=== PATIENT | female | born 1990 | race African-American/Black ===

== ENCOUNTER 2018-04-23 18:46 | Emergency (ER) | payer OTHER ==
[2018-04-23 21:10] LABS: APPEARANCE,URINE CLEAR; BILIRUBIN,URINE NEGATIVE (NEGATIVE); COLOR,URINE YELLOW; GLUCOSE, URINE NEGATIVE (NEGATIVE); KETONES,URINE 80 mg/dL (NEGATIVE); LEUKOCYTE ESTERASE,URINE NEGATIVE (NEGATIVE); NITRITE,URINE NEGATIVE (NEGATIVE); PROTEIN,URINE NEGATIVE (NEGATIVE); URINE SPECIFIC GRAVITY 1.016; UROBILINOGEN,URINE NEGATIVE mg/dL (<2.0)
[2018-04-23 21:13] LABS: HEMATOCRIT 42.8 % (36.0-47.0); HEMOGLOBIN 14.5 g/dL (12.0-15.5); MEAN CORPUSCULAR HEMOGLOBIN 28.4 pg (27.0-33.4); MEAN CORPUSCULAR HGB CONC 33.8 g/dL (32.0-36.0); MEAN CORPUSCULAR VOLUME 84 fl (80-97); RED CELL DISTRIBUTION WIDTH 13.6 % (11.5-14.0)
[2018-04-23 21:29] LABS: ABSOLUTE LYMPHOCYTES# (MANUAL) 2.8 10^3/uL (0.5-4.7); ABSOLUTE MONOCYTES # (MANUAL) 0.9 10^3/uL (0.1-1.4); ABSOLUTE NEUTROPHILS# (MANUAL) 7.3 10^3/uL (1.7-8.2); BASOPHILS % (MANUAL) 0 % (0-2); EOSINOPHILS % (MANUAL) 1 % (0-6); LYMPHOCYTES % (MANUAL) 25 % (13-45); MONOCYTES % (MANUAL) 8 % (3-13); SEGMENTED NEUTROPHILS % (MAN) 66 % (42-78); TOTAL CELLS COUNTED 100
[2018-04-23 21:30] LABS: PLATELET COMMENT ADEQUATE; PLATELET COUNT 150 10^3/uL (150-450); TOXIC GRANULATION SLIGHT
--- NOTE | 2018-04-23 22:05 | ER Document Report ---
ED Medical Screen (RME) - General Chief Complaint: Abdominal Pain Stated Complaint: ABDOMINAL PAIN Time Seen by Provider: 04/23/18 21:59 Primary Care Provider: BRAYDON NAVA MD [ACTIVE STAFF] - Follow up as needed Notes: Patient is a 27-year-old female who presents emergency department with a chief complaint of abdominal pain. She states that her pain started this weekend. She was seen by [facility] and they told her that she was and started her on Flagyl. She describes her pain as a sharp pain that is in her pelvic region. Exam: Mildly tender abdomen. I have greeted and performed a rapid initial assessment of this patient. A comprehensive ED assessment and evaluation of the patient, analysis of test results and completion of medical decision making process will be conducted by an additional ED providers. TRAVEL OUTSIDE OF THE [place] IN LAST 30 DAYS: No - Related Data Allergies/Adverse Reactions: vancomycin [Vancomycin] Allergy (Verified 03/02/14 19:48) Past Medical History - Immunizations Hx Diphtheria, Pertussis, Tetanus Vaccination: Yes Physical Exam - Vital signs Vitals: Temp Pulse Resp BP Pulse Ox 99.5 F 93 16 130/64 H 100 04/23/18 19:00 04/23/18 19:00 04/23/18 19:00 04/23/18 19:00 04/23/18 19:00 - Abdominal Tenderness: Tender Course - Vital Signs Vital signs: Temp Pulse Resp BP Pulse Ox 98.8 F 71 16 105/61 100 04/24/18 01:52 04/24/18 01:52 04/24/18 01:52 04/24/18 01:52 04/24/18 01:52 - Laboratory Result Diagrams: 04/23/18 20:48 04/23/18 22:13 Laboratory results interpreted by me: 04/23/18 04/23/18 04/23/18 20:48 20:48 22:13 WBC 11.0 H Beta HCG, Quant 9140.30 H Urine Ketones 80 H Doctor's Discharge - Discharge Clinical Impression: Abdominal pain affecting Condition: Good Disposition: HOME, SELF-CARE Instructions: Pelvic Pain in ([facility]) Additional Instructions: You have been evaluated in the Emergency Department for abdominal pain related to being . An ultrasound showed that you are approximately 5 weeks and 5 days along without any obvious problems. Lab work and urinalysis were also encouraging. You have decided to take misoprostol and follow-up with CORPORATE MANAGER within the next week. Please follow-up with your physician as instructed in 1 week. Return to the Emergency Department if you experience worsening pain, worsening bleeding, high fevers, or any other concerning symptoms. Prescriptions: Ondansetron [Zofran Odt 4 mg Tablet] 1 - 2 tab PO Q6H PRN #30 tab.rapdis PRN Reason: For Nausea/Vomiting Referrals: BRAYDON NAVA MD [ACTIVE STAFF] - Follow up as needed Print Language: Bermudian
[2018-04-23 22:37] LABS: ALANINE AMINOTRANSFERASE 28 U/L (9-52); ALBUMIN 4.6 g/dL (3.5-5.0); ALKALINE PHOSPHATASE 64 U/L (38-126); ANION GAP 12 (5-19); ASPARTATE AMINO TRANSFERASE 19 U/L (14-36); BILIRUBIN,DIRECT 0.1 mg/dL (0.0-0.4); BILIRUBIN,TOTAL 0.4 mg/dL (0.2-1.3); BLOOD UREA NITROGEN 10 mg/dL (7-20); CALCIUM 10.2 mg/dL (8.4-10.2); CARBON DIOXIDE 22 mmol/L (22-30); CHLORIDE 105 mmol/L (98-107); GLUCOSE 92 mg/dL (75-110); LIPASE 94.8 U/L (23-300); POTASSIUM 4.1 mmol/L (3.6-5.0); TOTAL PROTEIN 7.5 g/dL (6.3-8.2)
--- NOTE | 2018-04-23 23:31 | ER Document Report ---
ED GI/ - General Chief Complaint: Abdominal Pain Stated Complaint: ABDOMINAL PAIN Time Seen by Provider: 04/23/18 21:59 Primary Care Provider: BRAYDON NAVA MD [ACTIVE STAFF] - Follow up as needed Mode of Arrival: Ambulatory Information source: Patient Notes: HISTORY OF PRESENT ILLNESS: Patient is a 27-year-old female with no significant past medical history who presents with abdominal pain. Patient reports taking plan B "toward the end of February" but then reported having a period "the next week." She denies vaginal bleeding or discharge. Location: Abdominal Onset: Sudden Provocation: Movement, sitting Quality: "Cramping" Radiation: None Severity: Moderate Timing: Intermittent Injury: None known REVIEW OF SYSTEMS: CONSTITUTIONAL : Denies fever or chills, no sweats. Denies recent illness. EENT: Denies eye, ear, throat, or mouth pain or symptoms. Denies nasal or sinus congestion. CARDIOVASCULAR: Denies chest pain. RESPIRATORY: Denies cough, cold, or chest congestion. Denies shortness of breath, difficulty breathing, or wheezing. GASTROINTESTINAL: Positive for lower abdominal pain. Denies nausea, vomiting, or diarrhea. Denies constipation. GENITOURINARY: Denies difficulty urinating, painful urination, burning, frequenc y, or blood in urine. Denies vaginal bleeding, abnormal or irregular periods. MUSCULOSKELETAL: Denies neck or back pain or joint pain or swelling. SKIN: Denies rash or skin lesions. HEMATOLOGIC : Denies easy bruising or bleeding. LYMPHATIC: Denies swollen, enlarged glands. NEUROLOGICAL: Denies altered mental status or loss of consciousness. Denies headache. Denies weakness or paralysis or loss of use of either side. Denies problems with gait or speech. Denies sensory or motor loss. PSYCHIATRIC: Denies anxiety or stress or depression. All other systems reviewed and negative. PHYSICAL EXAMINATION: GENERAL: Well-appearing, well-nourished and in no acute distress. HEAD: Atraumatic, normocephalic. No scalp deformity, depression, or crepitance. EYES: Pupils are 3 mm and equal/round/reactive to light, extraocular movements intact, sclera anicteric, conjunctiva are normal. ENT: Nares patent bilaterally, oropharynx clear without exudates or palatal petechia. Moist mucous membranes. No tonsil hypertrophy. NECK: Normal range of motion, supple without lymphadenopathy. LUNGS: Breath sounds present, equal, and clear to auscultation bilaterally. No wheezes, rales, or rhonchi. HEART: Regular rate and rhythm without murmurs, rubs, or gallops. 2+ peripheral pulses. Normal capillary refill. ABDOMEN: Soft, nontender, nondistended. Normoactive bowel sounds. No guarding, no rebound. No masses appreciated. BACK: Normal contour, no midline tenderness. Rectal exam deferred. PELVC: Deferred. EXTREMITIES: Normal range of motion, no pitting or edema. No cyanosis. NEUROLOGICAL: No focal neurological deficits. Moves all extremities spontaneously and on command. PSYCH: Normal mood, normal affect. No suicidal thoughts/ideations. No homocidal thoughts/ideations. No hallucinations. SKIN: Warm, dry, normal turgor, no rashes or lesions noted. ASSESSMENT AND PLAN: This patient is a 27-year-old female who presents with lower abdominal pain in the setting of recent which could represent normal pain and but also threatened . 1. Will obtain labs, urinalysis, quantitative hCG, and pelvic ultrasound. 2. Will consult SYSTEMS ANALYST ENGINEER depending on results of workup. TRAVEL OUTSIDE OF THE [place] IN LAST 30 DAYS: No - Related Data Allergies/Adverse Reactions: vancomycin [Vancomycin] Allergy (Verified 03/02/14 19:48) Past Medical History - General Information source: Patient - Social History Smoking Status: Never Smoker Chew tobacco use (# tins/day): No Frequency of alcohol use: None Drug Abuse: None Lives with: Family Family History: Reviewed & Not Pertinent Patient has suicidal ideation: No Patient has homicidal ideation: No - Past Medical History Cardiac Medical History: Reports: None Pulmonary Medical History: Reports: None EENT Medical History: Reports: None Neurological Medical History: Reports: None Endocrine Medical History: Reports: None Renal/ Medical History: Reports: None. Denies: Hx Peritoneal Dialysis Malignancy Medical History: Reports: None GI Medical History: Reports: None Musculoskeletal Medical History: Reports None Skin Medical History: Reports None Psychiatric Medical History: Reports: None Traumatic Medical History: Reports: None Infectious Medical History: Reports: None Surgical Hx: Negative Past Surgical History: Reports: None - Immunizations Immunizations up to date: Yes Hx Diphtheria, Pertussis, Tetanus Vaccination: Yes History of Influenza Vaccine for 12/2016 - 05/2017 Season: Unknown Physical Exam - Vital signs Vitals: Temp Pulse Resp BP Pulse Ox 99.5 F 93 16 130/64 H 100 04/23/18 19:00 04/23/18 19:00 04/23/18 19:00 04/23/18 19:00 04/23/18 19:00 Course - Re-evaluation Re-evalutation: 04/24/18 01:57 Ultrasound shows early single intrauterine at 5 weeks and 5 days without other pathology noted. Lab work is otherwise unremarkable. Patient does not want to the and has decided she would like to take misoprostol and follow-up with SYSTEMS ANALYST ENGINEER to confirm termination of the . She will be given oral Zofran with misoprostol and will be discharged home with return precautions and follow-up to confirm. Patient voices understanding and agreeing with the plan. - Vital Signs Vital signs: Temp Pulse Resp BP Pulse Ox 98.8 F 71 16 105/61 100 04/24/18 01:52 04/24/18 01:52 04/24/18 01:52 04/24/18 01:52 04/24/18 01:52 - Laboratory Result Diagrams: 04/23/18 20:48 04/23/18 22:13 Laboratory results interpreted by me: 04/23/18 04/23/18 04/23/18 20:48 20:48 22:13 WBC 11.0 H Beta HCG, Quant 9140.30 H Urine Ketones 80 H - Diagnostic Test Radiology reviewed: Image reviewed, Reports reviewed Discharge - Discharge Clinical Impression: Abdominal pain affecting Condition: Good Disposition: HOME, SELF-CARE Instructions: Pelvic Pain in ([facility]) Additional Instructions: You have been evaluated in the Emergency Department for abdominal pain related to being . An ultrasound showed that you are approximately 5 weeks and 5 days along without any obvious problems. Lab work and urinalysis were also encouraging. You have decided to take misoprostol and follow-up with SYSTEMS ANALYST ENGINEER within the next week. Please follow-up with your physician as instructed in 1 week. Return to the Emergency Department if you experience worsening pain, worsening bleeding, high fevers, or any other concerning symptoms. Prescriptions: Ondansetron [Zofran Odt 4 mg Tablet] 1 - 2 tab PO Q6H PRN #30 tab.rapdis PRN Reason: For Nausea/Vomiting Referrals: BRAYDON NAVA MD [ACTIVE STAFF] - Follow up as needed Print Language: Bulgarian
--- NOTE | 2018-04-23 23:34 | RADIOLOGY REPORT (SQ) ---
EXAM DESCRIPTION: US TRANSVAGINAL COMPLETED DATE/TME: 04/23/2018 22:05 CLINICAL HISTORY: 27 years, Female, pelvic pain COMPARISON: None. TECHNIQUE: Transverse and longitudinal transvaginal sonographic images of the pelvis in a first trimester patient LIMITATIONS: None. FINDINGS: The uterus measures 9.3 x 6.8 x 4.3 cm. An anechoic focus within the endometrial canal likely reflect very early gestational sac. No visible pole or detectable heart tones. Small yolk sac is present. The right ovary measures 3.7 x 2.8 x 2.3 cm, the left ovary measures 3.1 x 1.9 x 1.6 cm. 2.9 x 2.3 x 2.2 cm complex cyst of the right ovary likely reflects corpus luteal cyst. Arterial and venous flow to both ovaries. No solid adnexal mass. Trace of free fluid. Current ultrasound age is 5 weeks 5 days based on a mean sac diameter of 0.90 cm IMPRESSION: Intrauterine gestational sac with yolk sac. No visible pole at this time. Current ultrasound age 5 weeks 5 days. Close obstructor follow-up recommended. Correlate with beta hCG levels. Trace of free fluid. Probable corpus luteal cyst of the right ovary copyright 2010 [employer]- All Rights Reserved
[2018-04-24] MEDS ORDERED: MISOPROSTOL 0.1 MG TABLET PO ONE (01:44)
[2018-04-24] MEDS ORDERED: ONDANSETRON 4 MG TAB.RAPDIS PO ONE (01:44)
[2018-04-24 02:44] VITALS: BP 105/61
== END 2018-04-24 02:43 | disposition home or self-care (01) ==
LOC: ER 18:46
DX: O26.891 Other specified pregnancy related conditions, first trimester (principal); R10.30 Lower abdominal pain, unspecified; Z3A.01 Less than 8 weeks gestation of pregnancy; Z88.1 Allergy status to other antibiotic agents
CPT/HCPCS: 99284; 36415; 84702; 83690; 85025; 80053; 81001; 76817; S0119; J3490